=== PATIENT | male | born 1950 | race Caucasian/White ===

== ENCOUNTER 2021-04-02 02:21 | Inpatient (IN) | payer MEDICARE ==
[~2021-04-02] VITALS: Ht 177.8 cm; Wt 89.4 kg
[2021-04-02] MEDS ORDERED: MORPHINE 2 MG SYG IVP ONE (03:30)
[2021-04-02 03:33] LABS: BASOPHILS % (AUTO) 0.5 % (0.0-5.0); EOSINOPHILS % (AUTO) 1.5 % (0.0-8.0); HEMATOCRIT 42.8 % (42-54); LYMPHOCYTES % (AUTO) 14.1 % (21.0-51.0); MEAN CORPUSCULAR HEMOGLOBIN 33.4 pg (27.0-33.0); MEAN CORPUSCULAR HGB CONC 34.3 g/dL (32.0-36.0); MEAN CORPUSCULAR VOLUME 97.3 fL (79-99); NEUTROPHILS % (AUTO) 77.7 % (40.0-77.0); PLATELET COUNT (AUTO) 140 K/uL (130-400); RED CELL DISTRIBUTION WIDTH 12.4 % (11.0-15.5); WHITE BLOOD COUNT (AUTO) 8.2 K/uL (4.8-10.8)
[2021-04-02 03:41] LABS: APPEARANCE,URINE Clear (CLEAR); BILIRUBIN,URINE Negative (NEGATIVE); COLOR,URINE Yellow (YELLOW); GLUCOSE, URINE (UA) Negative (NEGATIVE); KETONES,URINE Negative (NEGATIVE); LEUKOCYTE ESTERASE ,URINE Trace (NEGATIVE); NITRATE,URINE Negative (NEGATIVE); OCCULT BLOOD,URINE Negative (NEGATIVE); PROTEIN,URINE Negative (NEGATIVE); UROBILINOGEN,URINE 0.2 mg/dL (0.2-1.0)
[2021-04-02 03:47] LABS: ALBUMIN 3.4 g/dL (3.5-5.0); BILIRUBIN,TOTAL 0.5 mg/dL (0.2-1.0); TOTAL PROTEIN, SERUM 7.6 g/dL (6.0-8.3)
[2021-04-02 03:51] LABS: BACTERIA,URINE None Seen /HPF (None Seen); RBC,URINE None Seen /HPF (0-1); WBC,URINE None Seen /HPF (0-1)
[2021-04-02] MEDS ORDERED: PANTOPRAZOLE 40 MG/VIAL ONE (05:45)
[2021-04-02] MEDS ORDERED: MORPHINE 2 MG SYG ONE (05:45)
[2021-04-02] MEDS ORDERED: PANTOPRAZOLE 40 MG/VIAL IVP SCH (06:30)
[2021-04-02] MEDS ORDERED: MORPHINE 2 MG SYG IVP SCH (06:30)
[2021-04-02] MEDS ORDERED: ZOSYN 3.375GM +NS 50ML IV SCH (08:30)
[2021-04-02] MEDS: 0.9%NACL 1000ML 1,000 ML IV SCH (10:06)
[2021-04-02] MEDS ORDERED: ZOSYN 3.375GM+NS 50ML 50 ML IV SCH ×3 (13:00→18:00)
[2021-04-02] MEDS ORDERED: ONDANSETRON 4MG INJ IVP PRN (15:00)
[2021-04-02] MEDS ORDERED: MORPHINE 2 MG SYG IVP PRN (15:00)
[2021-04-02] MEDS ORDERED: KETOROLAC 15MG/ML VIAL (15MG/ML) IM PRN (15:00)
[2021-04-02] MEDS ORDERED: 0.9%NACL 50ML 50 ML IV ONE (18:18)
[2021-04-03] MEDS: 0.9%NACL 1000ML 1,000 ML IV SCH ×3 (00:25→23:40)
[2021-04-03] MEDS ORDERED: 0.9%NACL 50ML 50 ML IV ONE ×2 (02:31→12:59)
[2021-04-03] MEDS: ZOSYN 3.375GM+NS 50ML 50 ML IV SCH ×3 (03:05→21:39)
[2021-04-03 15:34] LABS: HEMATOCRIT 40.4 % (42-54); MEAN CORPUSCULAR HEMOGLOBIN 33.4 pg (27.0-33.0); MEAN CORPUSCULAR HGB CONC 33.7 g/dL (32.0-36.0); MEAN CORPUSCULAR VOLUME 99.3 fL (79-99); RED BLOOD CELL COUNT(AUTO) 4.07 MIL/uL (4.50-6.20); RED CELL DISTRIBUTION WIDTH 12.7 % (11.0-15.5); WHITE BLOOD COUNT (AUTO) 6.3 K/uL (4.8-10.8)
[2021-04-03 15:44] LABS: POTASSIUM 3.8 mmol/L (3.5-5.1)
[2021-04-03] MEDS ORDERED: [UNRECOGNIZED DRUG - OTHER] (17:01)
[2021-04-03] MEDS ORDERED: MULT-503 PO (17:01)
[2021-04-04] MEDS: ZOSYN 3.375GM+NS 50ML 50 ML IV SCH (05:50)
[2021-04-04 07:30] VITALS: BP 133/63
== END 2021-04-04 08:30 | disposition left against medical advice (07) | DRG 388 ==
LOC: EDBD 02:21 → EDH 02:21 → EDHIP 08:12
PROVIDERS: ADMIT Internal Medicine; ATTEND Internal Medicine
DX: K56.609 Unspecified intestinal obstruction, unspecified as to partial versus complete obstruction (principal); U07.1 COVID-19; K57.90 Diverticulosis of intestine, part unspecified, without perforation or abscess without bleeding; K52.9 Noninfective gastroenteritis and colitis, unspecified; Z86.16 Personal history of COVID-19; Z87.01 Personal history of pneumonia (recurrent); Z88.8 Allergy status to other drugs, medicaments and biological substances
CPT/HCPCS: 36415; 71045; 74018; 74176; 80048; 80053; 81001; 83690; 85025; 85027; 87635; C9113; G0378; J2543; J7030